=== PATIENT | male | born 1970 | race Caucasian/White ===

== ENCOUNTER 2018-03-10 15:33 | Emergency (ER) | payer OTHER ==
--- NOTE | 2018-03-10 15:39 | EDPHY ---
HPI/HX/ROS/PE/MDM Narrative: CHIEF COMPLAINT: Vision changes, hypertension HISTORY OF PRESENT ILLNESS: The patient is a 47 y/o male arriving at the advice of his PCP, complaining of vision changes, hypertension, and an abnormal color and sensation in his hands. For the past 2-3 weeks has had difficulty focusing at any distance, blurry vision, constant thirst, and headaches. He saw his visual presentation manager, who said that the patient's prescription changed so he wore the new prescription yesterday but was still having a headache. Today he went back to his old prescription and was able to see with this prescription, which he thought was odd. Denies flashes of lights or curtains in visual palmer, double vision. While at work today, his hands suddenly became purple, weak, and had a tingling sensation. He did not drop anything during this episode and the coloration in his hands slowly retuned back to normal after several minutes. The patient became concerned about the vision changes and hand coloration so he saw a physician at [facility] who noticed that the patient was hypertensive. They advised him to present to the emergency department after having EKG with non-specific T wave abnormalities. His hands currently feel cold. In addition, there was a report of chest pain after exercise. Patient describes chest pain after doing chin ups, or exercise which involves chest wall musculature. No pain today Denies history of diabetes or high blood pressure. Denies tobacco or marijuana use. No fever, chills, chest pain, shortness of breath, palpitations, vomiting, diarrhea, urinary complaints, headache, lightheadedness. REVIEW OF SYSTEMS: Aside from elements discussed in the HPI, a comprehensive 10-point review of systems was reviewed and is negative. PAST MEDICAL HISTORY: Tonsillectomy SOCIAL HISTORY: , lives in [place], [facility], [place] VITAL SIGNS: Reviewed by me GENERAL: Well-developed, well-nourished, resting comfortably in no respiratory distress. HEENT: Atraumatic. Eyes: No icterus, no injection. Mouth: moist mucous membranes. No erythema or lesions. Neck: supple with no adenopathy. LUNGS: Clear to auscultation bilaterally, no wheezes, rhonchi or rales. CHEST: Nontender, no crepitus, no bruising. CARDIAC: Regular rate and rhythm, no rubs, murmurs or gallops. ABDOMEN: Soft, nontender, nondistended, bowel sounds normal. BACK: No CVA tenderness. EXTREMITIES: Hands are cool. Good radial pulses bilaterally. No trauma. No edema. Range of motion is normal throughout. NEURO: Alert and oriented, grossly nonfocal. SKIN: Warm and dry, no rash. PSYCHIATRIC: Normal mentation, no agitation. Portions of this note were transcribed by a senior medical transcriptionist. I personally performed a history, physical exam, medical decision making, and confirmed accuracy of information the transcribed note. ED Course: The patient is a 47 y/o male arriving at the advice of his PCP, presenting with vision changes, hypertension, and an abnormal color and sensation in his hands. Noted to have an abnormal EKG earlier today and to be very hypertensive. On exam his hands are cool, but he has good radial pulses bilaterally. His heart is regular and his lungs are clear. EKG and labs ordered. 1539: 12-LEAD EKG: Please see the full report in [facility]. My interpretation: Sinus rhythm with a rate of 70. EKG earlier today revealed non- specific T wave abnormalities. All labs normal No chest pain today. Suspect patient has hypertension and needs to establish primary care physician. He wishes to follow up with [facility], where he was seen today. 1658: Reassessed patient and discussed normal imaging and laboratory findings. I have advised him to follow up with his PCP in the next week. Return precautions provided; patient is comfortable with this plan. MDM: Diff dx considered included but not limited to chest wall pain, hypertension, acute coronary syndrome, vasospasm, anxiety. - Data Points Imaging Results: CXR: Normal Viewed independently and interpreted independently by myself. Imaging: I viewed and interpreted images myself Laboratory Results: Laboratory Results 03/10/18 15:46 03/10/18 15:46 Medications Given: Discontinued Medications Sodium Chloride (Ns) 500 mls @ 1,000 mls/hr IV EDNOW ONE PRN Reason: Protocol Stop: 03/10/18 16:31 Last Admin: 03/10/18 16:46 Dose: 500 mls General Time Seen by Provider: 03/10/18 15:37 Initial Vital Signs: Initial Vital Signs Temperature (C) 36.6 C 03/10/18 15:40 Heart Rate 79 03/10/18 15:40 Respiratory Rate 18 03/10/18 15:40 Blood Pressure 155/98 H 03/10/18 15:40 O2 Sat (%) 98 03/10/18 15:40 O2 Delivery Mode Room Air Allergies/Adverse Reactions: Penicillins Allergy (Verified 03/10/18 15:46) Home Medications: Medication Instructions Recorded NK [No Known Home Meds] 03/10/18 Departure - Departure Disposition: Home, Routine, Self-Care Clinical Impression: Vision changes, Abnormal EKG Hypertension Qualifiers: Hypertension type: unspecified Qualified Code(s): I10 - Essential (primary) hypertension Condition: Good Instructions: Chest Pain (ED), Blurred Vision (ED) Additional Instructions: Monitor your blood pressure at home. Follow up with a assembler for puller over hand for further testing, as soon as possible, within one week. You have been referred to Dr. Zhu, but you can see any of his colleagues. Follow up with Dr. Sigala, she is a physician at [facility] , but you can see any of the providers at this practice. Return to the Emergency Department for fever, chest pain, shortness of breath, severe headache, vomiting, vision changes, confusion, fever or other concerns. Referrals: Serafin Zhu MD [Medical Doctor] - As per Instructions Nell Sigala MD [Medical Doctor] - As per Instructions Report Scribed for: Micaela Bell Report Scribed by: Roya Fischer Date of Report: 03/10/18 Time of Report: 15:39
--- NOTE | 2018-03-10 15:42 | CPEKG ---
Heart Rate: 70 RR Interval: 857 P-R Interval: 160 QRSD Interval: 86 QT Interval: 404 QTC Interval: 436 P [place]: 47 QRS [place]: 61 T Wave [place]: -7 EKG Severity - BORDERLINE ECG - EKG Impression: SINUS RHYTHM EKG Impression: BORDERLINE T ABNORMALITIES, INFERIOR LEADS Electronically Signed By: Jefe Germain 10-Mar-2018 21:02:57
[2018-03-10] MEDS ORDERED: NS 500 ML IV ONE (16:02)
[2018-03-10 16:10] LABS: PLATELET COUNT 164 10^3/uL (150-400)
[2018-03-10 17:17] VITALS: BP 144/99
== END 2018-03-10 17:17 | disposition home or self-care (01) ==
DX: H53.8 Other visual disturbances (principal); I10 Essential (primary) hypertension; R94.31 Abnormal electrocardiogram [ECG] [EKG]; E86.9 Volume depletion, unspecified